=== PATIENT | female | born 1955 | race Caucasian/White ===

== ENCOUNTER 2024-06-12 21:58 | Emergency (ER) | payer OTHER, SELFPAY ==
[2024-06-12 22:26] VITALS: BP 111/58; PULSE 73; RESP 18; TEMP 35.9; O2SAT 95; BMI 28.3
--- NOTE | 2024-06-13 01:11 | ED_ITS ---
HPI - Animal Bite General Chief Complaint: Animal Bite Stated Complaint: bat exposure Time Seen by Provider: 06/12/24 23:32 Source: patient Mode of arrival: Ambulatory History of Present Illness HPI narrative: 69-year-old female with potential exposure to bad. Patient is with her extended family. She has been visiting them about was found in the living room flying around today they has been gone and then returned out of the house for only an hour. They have all been sleeping with in the house. She has no other known exposures or contact. States no daily medications or medical issues otherwise. Denies any drug allergies besides sulfa. No issues with prior vaccines. Patient states that she lives in [place] but would be here for the 2nd dose of vaccine. Family did capture the bat they do have it there are calls out to Counts include [facility] beds at the [facility] to see if it can be tested. Related Data Allergies Allergy/AdvReac Type Severity Reaction Status Date / Time Sulfa (Sulfonamide AdvReac Weakness Verified 06/12/24 22:34 Antibiotics) Review of Systems Review of Systems ROS Unobtainable: All systems reviewed & are unremarkable except as noted in HPI and below Exam Narrative Exam Narrative: GENERAL: Alert and oriented x three, no acute distress HEENT: Head normocephalic, atraumatic, EOMI, pupils reactive, face symmetric, moist mucous membranes NECK: Supple, full range of motion EXTREMITIES: Normal range of motion, normal gait. NEUROLOGICAL: Cranial nerves II through XII grossly intact. Moving all extremities SKIN: Warm, dry, no petechiae, no rashes or lesions. Initial Vital Signs Initial Vital Signs: Vital Signs Temperature 96.6 F L 06/12/24 22:26 Pulse Rate 73 06/12/24 22:26 Respiratory Rate 18 06/12/24 22:26 Blood Pressure 111/58 L 06/12/24 22:26 Pulse Oximetry 95 06/12/24 22:26 Oxygen Delivery Method Room Air 06/12/24 22:26 Course Orders Ordered: Discontinued Medications Rabies Immune Globulin (Rabies Immune Globulin 150 Unit/Ml 2ml Vial) 1,497 unit 20 unit/kg (1497 unit) IM NOW ONE Stop: 06/13/24 01:46 Last Admin: 06/13/24 02:32 Dose: 1,497 unit Documented By: Rabies Vaccine (Rabies Vaccine (Rabavert) 2.5 Units Syringe) 2.5 units IM .ONCE ONE Stop: 06/12/24 23:34 Last Admin: 06/13/24 02:25 Dose: 2.5 units Documented By: AB Vital Signs Vital signs: Vital Signs - 8 hr 06/12/24 22:26 06/13/24 03:08 Temperature 96.6 F L Pulse Rate 73 81 Respiratory Rate 18 18 Blood Pressure 111/58 L 120/74 Pulse Oximetry 95 95 Oxygen Delivery Method Room Air Room Air MDM - Animal Bite MDM Narrative Medical decision making narrative: 69-year-old male presents for rabies immunoglobulin and vaccine did try to reach out to [facility] unable to contact left voicemail. They do have the bat for testing. Patient would like to proceed with treatment. Discharge Plan Departure Patient Disposition: Home Clinical Impression: Exposure to bat without known bite Instructions: DI for Rabies Vaccine Activity Restrictions/Additional Instructions: You have received the initial rabies immunoglobulin as well as your rabies vaccine, you will need to return to the closest facility for repeat vaccinations on day 3, day 7 and day 14.? Scheduled included below. I would contact your local primary care, health department or local emergency department and they can direct you the best place to receive your repeat rabies vaccines. Today is Day 0-SaturdayJune 13 Day 3-SaturdayJune 16 Day 7 -SaturdayJune 20 Day 14 -SaturdayJune 27? Can give ibuprofen and/or acetaminophen for any mild swelling itching or warmth at the vaccine site. Please return if you have any difficulty with fevers, breathing, rashes, alteration in mental status, chest pain or shortness of breath, persistent vomiting or other new or concerning changes. Stand Alone Forms: Patient Portal/API
[2024-06-13] MEDS: RABIES VACCINE (RABAVERT) 2.5 UNITS SYRINGE IM (02:25)
[2024-06-13] MEDS: RABIES IMMUNE GLOBULIN 150 UNIT/ML 1497 UNIT IM (02:32)
[2024-06-13 03:08] VITALS: BP 120/74; PULSE 81; RESP 18; O2SAT 95
--- NOTE | 2024-06-13 03:22 | PC.NURSE ---
Do not have vaccine and immunoglobulin in facility, called [facility] and talked to pharmacist. stated has vaccine and immunoglobulin and got permission to share meds. Meds arrived and medicated pt.
== END 2024-06-13 03:23 | disposition home or self-care (01) ==
PROVIDERS: Emergency Provider Emergency Medicine
DX: Z20.3 Contact with and (suspected) exposure to rabies (principal); Z23 Encounter for immunization
CPT/HCPCS: 90377; 90471; 90675; 96372; 99283